=== PATIENT | female | born 1965 | race Caucasian/White ===

== ENCOUNTER 2017-12-20 13:27 | Emergency (ER) | payer MEDICAID ==
[~2017-12-20] VITALS: Ht 162.6 cm; Wt 73.9 kg
[~2017-12-20 13:27] MED LIST: ARIP1TAB5 PO; GEMF600T3 PO; HYDR-2551 PO; IBUP800T24 PO; METF-371 PO; OMEG120017 PO; OMEP20TA85 PO; PANT1INJ3 IV; POTATAB17 PO; SELE200T2 PO; TEMA15CA PO; TRAZ100T2 PO; VITA400C3 PO
[2017-12-20 14:18] LABS: Basophils # (auto) 0.1 uL; Eosinophils # (auto) 0.1 uL; Eosinophils % (auto) 1.9 % (0.0-7.0); Hematocrit 43.6 % (36.0-46.0); Hemoglobin 15.2 g/dL (12.2-16.2); Lymphocytes # (auto) 2.3 uL; Lymphocytes % (auto) 29.5 % (10.0-50.0); Mean Corpuscular Hemoglobin 31.8 pg (28.0-32.0); Mean Corpuscular Hgb Conc. 34.8 g/dL (32.0-36.0); Mean Corpuscular Volume 91.3 fL (80.0-100.0); Monocytes # (auto) 0.7 uL; Monocytes % (auto) 8.8 % (0.0-12.0); Neutrophils # (auto) 4.6 uL; Neutrophils % (auto) 58.8 % (37.0-80.0); Nucleated Red Blood Cells % 0.1 %; Platelet Count (auto) 219 10^3/uL (140-450); Red Blood Cells 4.77 10^6/uL (4.0-5.20); Red Cell Distribution Width 13.7 % (11.8-14.3); White Blood Cell 7.8 10^3/uL (4.4-10.8)
[2017-12-20 14:22] LABS: Urine Bacteria NONE SEEN /hpf (None Seen); Urine Blood Negative /uL (Negative); Urine Specific Gravity 1.005 (1.001-1.035); Urine WBC <1 /hpf (0 - 5)
[2017-12-20 14:34] LABS: Albumin 4.3 g/dL (3.4-5.0); BUN/Creatinine Ratio 7.7; Calcium 9.5 mg/dL (8.5-10.1); Potassium 3.8 mmol/L (3.5-5.1)
[2017-12-20 14:37] LABS: Bilirubin, Total 0.3 mg/dL (0.2-1.0); Total Protein 7.9 g/dL (6.4-8.2)
[2017-12-20] MEDS ORDERED: SODIUM CHLORIDE 0.9% 1,000 ML IV ONE (15:57)
[2017-12-20] MEDS ORDERED: KETOROLAC TROMETH 30 MG/ML 1ML VIAL IV ONE (16:00)
[2017-12-20] MEDS ORDERED: PROMETHAZINE HCL 25 MG/ML 1ML IV PRN (16:00)
[2017-12-20 18:05] VITALS: BP 127/74
== END 2017-12-20 19:33 | disposition home or self-care (01) ==
LOC: ER 13:27
DX: R10.9 Unspecified abdominal pain (principal); I25.10 Atherosclerotic heart disease of native coronary artery without angina pectoris; E11.9 Type 2 diabetes mellitus without complications; K21.9 Gastro-esophageal reflux disease without esophagitis; E78.5 Hyperlipidemia, unspecified; I10 Essential (primary) hypertension; F17.210 Nicotine dependence, cigarettes, uncomplicated; F12.10 Cannabis abuse, uncomplicated; Z79.899 Other long term (current) drug therapy; Z88.8 Allergy status to other drugs, medicaments and biological substances
CPT/HCPCS: 36415; 71046; 74176; 80053; 81001; 83690; 83735; 84443; 85025; 93005; 96374; 96375; 99285; J1885; J2550

== ENCOUNTER 2019-05-05 23:10 | Emergency (ER) | payer MEDICAID ==
[~2019-05-05] VITALS: Ht 162.6 cm; Wt 68.0 kg
[~2019-05-05 23:10] MED LIST changes: +AMLO5TAB15 PO; +ASPI-404 PO; +CLOP75TA41 PO; -GEMF600T3 PO; -HYDR-2551 PO; +IBUP200T76 PO; -IBUP800T24 PO; +IPRAAER6 IN; +METO-169 PO; -OMEG120017 PO; -OMEP20TA85 PO; -PANT1INJ3 IV; -POTATAB17 PO; -SELE200T2 PO; -TEMA15CA PO; -VITA400C3 PO
[2019-05-05 23:50] LABS: Basophils # (auto) 0.1 uL; Basophils % (auto) 1.3 % (0.0-2.0); Eosinophils # (auto) 0.2 uL; Eosinophils % (auto) 2.5 % (0.0-7.0); Hematocrit 43.5 % (36.0-46.0); Hemoglobin 15.2 g/dL (12.2-16.2); Lymphocytes # (auto) 3.4 uL; Lymphocytes % (auto) 42.5 % (10.0-50.0); Mean Corpuscular Hemoglobin 31.7 pg (28.0-32.0); Mean Corpuscular Hgb Conc. 34.9 g/dL (32.0-36.0); Mean Corpuscular Volume 90.7 fL (80.0-100.0); Monocytes # (auto) 0.7 uL; Monocytes % (auto) 9.2 % (0.0-12.0); Neutrophils # (auto) 3.6 uL; Neutrophils % (auto) 44.5 % (37.0-80.0); Nucleated Red Blood Cells % 0.1 %; Platelet Count (auto) 199 10^3/uL (140-450); Red Cell Distribution Width 13.2 % (11.8-14.3)
[2019-05-05 23:58] LABS: Alanine Aminotransferase 27 U/L (13-56); Albumin 4.1 g/dL (3.4-5.0); Anion Gap 7 (5-15); Aspartate Aminotransferase 21 U/L (15-37); BUN/Creatinine Ratio 7.6; Blood Urea Nitrogen 5 mg/dL (7-18); Carbon Dioxide 27 mmol/L (21-32); Chloride 102 mmol/L (98-107); GFR African American 120 mL/min; GFR Non-African American 99 mL/min; Glucose 117 mg/dL (74-106); Potassium 3.7 mmol/L (3.5-5.1); Sodium 136 mmol/L (136-145)
[2019-05-06 00:03] LABS: Alkaline Phosphatase 130 U/L (45-117); Bilirubin, Total 0.3 mg/dL (0.2-1.0); Total Protein 7.6 g/dL (6.4-8.2)
[2019-05-06 05:10] LABS: Urine Bacteria FEW /hpf (None Seen); Urine Blood Negative /uL (Negative); Urine Specific Gravity 1.005 (1.001-1.035); Urine WBC 2 /hpf (0 - 5)
[2019-05-06 06:26] VITALS: BP 152/81
== END 2019-05-06 07:14 | disposition home or self-care (01) ==
LOC: ER 23:16
DX: R07.89 Other chest pain (principal); I10 Essential (primary) hypertension; I25.2 Old myocardial infarction; E78.5 Hyperlipidemia, unspecified; E11.9 Type 2 diabetes mellitus without complications; F12.10 Cannabis abuse, uncomplicated; F17.210 Nicotine dependence, cigarettes, uncomplicated; Z98.61 Coronary angioplasty status; Z90.89 Acquired absence of other organs; Z88.8 Allergy status to other drugs, medicaments and biological substances
CPT/HCPCS: 36415; 71045; 80053; 81001; 83735; 84484; 85025

== ENCOUNTER → 2024-03-17 | Outpatient (CLI) | payer MEDICAID ==
[~2024-03-17] MED LIST changes: +ALBUTEROL SULF 2.5 MG/0.5ML(0.5%) NEB SOLN ONE; +AMLO1TAB22 PO; -AMLO5TAB15 PO; +ARIP10TA8 PO; -ARIP1TAB5 PO; -ASPI-404 PO; +ASPI-543 PO; -CLOP75TA41 PO; +CLOP75TA70 PO; -METO-169 PO; +METO-289 PO; +TRAZ-228 PO; -TRAZ100T2 PO
== END | disposition home or self-care (01) ==
LOC: RT 10:36
PROVIDERS: ATTEND Internal Medicine Pulmonary Disease
DX: J44.9 Chronic obstructive pulmonary disease, unspecified (principal); R06.09 Other forms of dyspnea
CPT/HCPCS: 94060; 94727; 94729

== ENCOUNTER 2024-06-26 08:41 | Emergency (ER) | payer MEDICAID ==
[~2024-06-26] VITALS: Ht 170.2 cm; Wt 67.6 kg
[~2024-06-26 08:41] MED LIST changes: -ALBUTEROL SULF 2.5 MG/0.5ML(0.5%) NEB SOLN ONE
[2024-06-26 09:10] VITALS: PULSE 90; RESP 18; O2SAT 95
--- NOTE | 2024-06-26 09:14 | ED.PDOC ---
History of Present Illness HPI Comments 59 Y F with PMHX of DM, ME, and HLD presents to the ED with chief complaint of mental health. Patient states that she has been having hallucinations since the passing of her SO on 04/22/24, with associated feelings of sadness. Patients relays that "she is fighting evil spirts" and that "the evil spirts are coming in and out of her". Patient denies any SI or HI, additionally denies the use of ETOH or drugs. Chief Complaint: Mental Health Time Seen by MD: 09:01 Primary Care Provider: NEERAJ Reviewed Notes: Medications, Allergies Allergies: Coded Allergies: Alirocumab (Verified Allergy, Unknown, 09/28/18) Atorvastatin (Verified Allergy, Unknown, 09/28/18) Reported [place] [facility] [place], [place]. Severity of allergy uknown. Clotrimazole (Verified Allergy, Unknown, 12/20/17) Gabapentin (Verified Allergy, Unknown, 09/28/18) Lisinopril (Verified Allergy, Unknown, 09/28/18) Reported by [facility] in [place], [place]. Severity of allergy unknown. Mouse Protein (Verified Allergy, Unknown, 09/28/18) Polymyxin B (Verified Allergy, Unknown, 12/20/17) Potassium (Verified Allergy, Unknown, 09/28/18) Rosuvastatin (Verified Allergy, Unknown, 09/28/18) Simvastatin (Verified Allergy, Unknown, 09/28/18) Temazepam (Verified Allergy, Unknown, 09/28/18) Home Meds Reported Medications Ibuprofen (Advil) 200 Mg Tab, 200 MG PO PRN, TAB 09/28/18 Ipratropium-Albuterol (COMBIVENT RESPIMAT) Respimat Aer, 1 PUFF IN BID, AER 09/28/18 Clopidogrel Bisulfate (CLOPIDOGREL) 75 Mg Tab, 75 MG PO DAILY for 30 Days, MG 09/28/18 Aspirin (Aspir-Low) 81 Mg Tab, 81 MG PO DAILY for 30 Days, MG 09/28/18 Amlodipine Besylate (Amlodipine Besylate) 5 Mg Tab, 5 MG PO DAILY for 30 Days, MG 09/28/18 Metoprolol Succinate (Metoprolol Succinate Er) 50 Mg Tab, 1 TAB PO DAILY, #30 TAB 5 Refills 09/28/18 Aripiprazole (Abilify) 10 Mg Tab, 10 MG PO HS, TAB 06/30/14 Trazodone Hcl (Trazodone Hcl) 100 Mg Tab, 2 TAB PO QPM, #30 TAB 1 Refill 06/30/14 Metformin Hydrochloride (Metformin Hcl) 850 Mg Tab, 1 TAB PO DAILY, #60 TAB 5 Refills 06/30/14 Information Source: Patient Mode of Arrival: Ambulatory Severity: Mild Timing: Months Duration: Since onset Past Medical History PAST MEDICAL HISTORY: DM, GERD, High Lipids, HTN, ME Surgical History: PTCA, Tonsillectomy RECORD RETRIEVAL SPECIALIST History: No Pertinent RECORD RETRIEVAL SPECIALIST History Family History Family History: Family hx of heart bijal Social History Smoker: Cigarettes, Less Than 1 Pack/Day Alcohol: Denies ETOH Use Drugs: Marijuana Lives In: Home Constitutional: denies: chills, diaphoresis, fatigue, fever, malaise, sweats, weakness, others EENTM: denies: blurred vision, double vision, ear bleeding, ear discharge, ear drainage, ear pain, ear ringing, eye pain, eye redness, hearing loss, mouth pain, mouth swelling, nasal discharge, nose bleeding, nose congestion, nose pain, photophobia, tearing, throat pain, throat swelling, voice changes, others Respiratory: denies: cough, hemoptysis, orthopnea, SOB at rest, shortness of breath, SOB with excertion, stridor, wheezing, others Cardiovascular: denies: chest pain, dizzy spells, diaphoresis, Dyspnea on exertion, edema, irregular heart beat, left arm pain, lightheadedness, palpit ations, PND, syncope, others Gastrointestinal: denies: abdomen distended, abdominal pain, blood streaked b owels, constipated, diarrhea, dysphagia, difficulty swallowing, hematemesis, melena, nausea, poor appetite, poor fluid intake, rectal bleeding, rectal pain, vomiting, others Genitourinary: denies: abnormal vagina bleeding, burning, dyspareunia, dysuria, flank pain, frequency, hematuria, incontinence, pain, , vagina discharge, urgency, others Neurological: denies: dizziness, fainting, headache, left sided numbness, left sided weakness, numbness, paresthesia, pre-existing deficit, right sided numbness, right sided weakness, seizure, speech problems, tingling, tremors, weakness, others Musculoskeletal: denies: back pain, gout, joint pain, joint swelling, muscle pain, muscle stiffness, neck pain, others Integumetry: denies: bruises, change in color, change in hair/nails, dryness, laceration, lesions, lumps, rash, wounds, others Allergic/Immunocompromised: denies: Difficulty Healing, Frequent Infections, Hives, Itching, others Hematologic/Lymphatic: denies: anemia, blood clots, easy bleeding, easy brui sing, swollen glands, others Endocrine: denies: excessive hunger, excessive sweating, excessive thirst, ex cessive urination, flushing, intolerance to cold, intolerance to heat, unexplained weight gain, unexplained weight loss, others Psychiatric: reports: others; denies: anxiety, bipolar disorder, depression, hopeless, panic disorder, schizophrenia, sleepless, suicidal All Other Systems: Reviewed and Negative Physical Exam General Appearance: No Apparent Distress, Normal HEENT: Normal ENT Inspection, Pharynx Normal, TMs Normal Neck: Full Range of Motion, Non-Tender, Normal, Normal Inspection Respiratory: Chest Non-Tender, Lungs Clear, No Accessory Muscle Use, No Respiratory Distress, Normal Breath Sounds Cardiovascular: No Edema, No JVD, No Murmur, No Gallop, Normal Peripheral Pulses, Regular Rate/Rhythm Breast Exam: Deferred Gastrointestinal: No Organomegaly, Non Tender, No Pulsatile Mass, Normal Bowel Sounds, Soft Genitalia: Deferred Pelvic: Deferred Rectal: Deferred Extremities: No calf tenderness, Normal capillary refill, Normal inspection, Normal range of motion, Non-tender, No pedal edema Musculoskeletal : Apperance: Normal Neurologic: Alert, master tax advisor II-XII nml as Tested, No Motor Deficits, Normal Affect, Normal Mood, No Sensory Deficits Cerebellar Function: Normal Reflexes: Normal Skin: Dry, Normal Color, Warm Lymphatic: No Adenopathy Was a procedure done? Was a procedure done?: No Differential Dx Considerations may include: Ashia, anxiety, grief reaction, major depression X-Ray, Labs, Meds, VS Vital Signs Date Time Temp Pulse Resp B/P (MAP) Pulse Ox O2 Delivery O2 Flow Rate FiO2 06/26/24 13:00 63 26 111/71 (84) 90 06/26/24 11:20 68 20 153/85 (107) 93 06/26/24 09:10 90 18 95 Room Air* 0 21 06/26/24 09:08 98.5 90 18 182/111 (134) 95 98.5 06/26/24 08:51 98.5 91 16 173/102 (125) 96 Lab Test 06/26/24 11:25 06/26/24 09:14 06/26/24 09:07 Range/Units Urine Color Yellow Yellow Urine Clarity Clear Clear Urine pH 6.5 5.0-9.0 Urine Specific [place] 1.013 1.001-1.035 Urine Protein Negative Negative Urine Ketones Negative Negative Urine Blood Negative Negative /uL Urine Nitrite Negative Negative Urine Bilirubin Negative Negative Urine Urobilinogen Normal Negative mg/dL Urine Leukocyte Esterase Negative Negative /uL Urine RBC None seen 0 - 4 /hpf Urine WBC 1 0 - 5 /hpf Urine Squamous Epithelial Cells Few <5 /hpf Urine Bacteria None seen None Seen /hpf Urine Mucus Few None Seen Urine Glucose Normal Normal mg/dL Urine Opiates Screen Neg NEGATIVE Urine Fentanyl Screen Neg NEGATIVE Urine Barbiturates Screen Neg NEGATIVE Urine Phencyclidine Screen Neg NEGATIVE Urine Amphetamines Screen Neg NEGATIVE Urine Benzodiazepines Screen Neg NEGATIVE Urine Cocaine Screen Neg NEGATIVE Urine Cannabinoids Screen Pos NEGATIVE White Blood Count 7.7 4.4-10.8 10^3/uL Red Blood Count 4.92 4.0-5.20 10^6/uL Hemoglobin 14.9 12.2-16.2 g/dL Hematocrit 44.4 36.0-46.0 % Mean Corpuscular Volume 90.2 80.0-100.0 fL Mean Corpuscular Hemoglobin 30.2 28.0-32.0 pg Mean Corpuscular Hemoglobin Concent 33.5 32.0-36.0 g/dL Red Cell Distribution Width 13.6 11.8-14.3 % Platelet Count 212 140-450 10^3/uL Mean Platelet Volume 9.3 6.9-10.8 fL Neutrophils (%) (Auto) 62.4 37.0-80.0 % Lymphocytes (%) (Auto) 24.9 10.0-50.0 % Monocytes (%) (Auto) 9.3 0.0-12.0 % Eosinophils (%) (Auto) 2.2 0.0-7.0 % Basophils (%) (Auto) 1.2 0.0-2.0 % Neutrophils # (Auto) 4.8 1.6-8.6 10 ^3/uL Lymphocytes # (Auto) 1.9 0.4-5.4 10 ^3/uL Monocytes # (Auto) 0.7 0-1.3 10 ^3/uL Eosinophils # (Auto) 0.2 0-0.8 10 ^3/uL Basophils # (Auto) 0.1 0-0.2 10 ^3/uL Nucleated Red Blood Cells 0.1 % Sodium Level 135 L 136-145 mmol/L Potassium Level 3.2 L 3.5-5.1 mmol/L Chloride Level 99 98-107 mmol/L Carbon Dioxide Level 28 20-31 mmol/L Anion Gap 8 5-15 Blood Urea Nitrogen 5 L 9-23 mg/dL Creatinine 0.75 0.550-1.02 mg/dL Glomerular Filtration Rate Calc 92 >90 mL/min BUN/Creatinine Ratio 6.7 L 10.0-20.0 Serum Glucose 164 H 74-106 mg/dL Calcium Level 9.9 8.7-10.4 mg/dL Salicylates Level < 3.0 -30 mg/dL Acetaminophen Level < 2.0 L 10.0-20.0 UG/ML Plasma/Serum Blood Alcohol < 3.0 <10 mg/dL POC Glucose 171 H 70-106 mg/dl Current Medications Medications (Trade) Dose Ordered Sig/Hira Route Start Time Stop Time Status Last Admin Olanzapine (ZyPREXA Tablet) 5 mg BID PO 06/26/24 11:15 06/26/24 12:12 Trazodone HCl (Desyrel) 200 mg HS PO 06/26/24 18:00 06/26/24 17:43 Time of 1ST Reevaluation: 09:31 Reevaluation 1ST: Unchanged Patient Education/Counseling: Diagnosis, Treatment Family Education/Counseling: No Family Present Departure 1 Departure Time of Disposition: 17:45 (Patient is medically clearedPatient was evaluated by psychiatry who recommends a 5150 hold for medically disability. We will transfer patient to a psychiatric facility.) Impression: Primary Impression: Auditory hallucination Additional Impression: Schizophrenia Qualified Codes: F20.1 - Disorganized schizophrenia [facility] Admit to: Med Surg Condition: Serious Critical Care Note Critical Care Time?: No Stability Stability form required: No Heart Score Heart Score: Heart Score Response (Comments) Value History N/A 0 EKG N/A 0 Age N/A 0 Risk Factors N/A 0 Troponin N/A 0 Total 0 I personally scribed for PATRICIA CASIANO MD ([email or web address]) on 06/26/24 at 09:14. Electronically submitted by Kimberly Cabrera ([email or web address]). PATRICIA CASIANO MD Jun 26, 2024 09:14
[2024-06-26 09:38] LABS: Basophils # (auto) 0.1 10 ^3/uL (0-0.2); Basophils % (auto) 1.2 % (0.0-2.0); Eosinophils # (auto) 0.2 10 ^3/uL (0-0.8); Eosinophils % (auto) 2.2 % (0.0-7.0); Hematocrit 44.4 % (36.0-46.0); Hemoglobin 14.9 g/dL (12.2-16.2); Lymphocytes # (auto) 1.9 10 ^3/uL (0.4-5.4); Lymphocytes % (auto) 24.9 % (10.0-50.0); Mean Corpuscular Hemoglobin 30.2 pg (28.0-32.0); Mean Corpuscular Hgb Conc. 33.5 g/dL (32.0-36.0); Mean Corpuscular Volume 90.2 fL (80.0-100.0); Monocytes # (auto) 0.7 10 ^3/uL (0-1.3); Monocytes % (auto) 9.3 % (0.0-12.0); Neutrophils # (auto) 4.8 10 ^3/uL (1.6-8.6); Neutrophils % (auto) 62.4 % (37.0-80.0); Nucleated Red Blood Cells % 0.1 %; Platelet Count (auto) 212 10^3/uL (140-450); Red Blood Cells 4.92 10^6/uL (4.0-5.20); Red Cell Distribution Width 13.6 % (11.8-14.3); White Blood Cell 7.7 10^3/uL (4.4-10.8)
[2024-06-26 09:45] LABS: Chloride 99 mmol/L (98-107)
[2024-06-26 09:46] LABS: Anion Gap 8 (5-15); Calcium 9.9 mg/dL (8.7-10.4); Carbon Dioxide 28 mmol/L (20-31)
[2024-06-26 09:58] LABS: Acetaminophen < 2.0 UG/ML (10.0-20.0); Blood Alcohol < 3.0 mg/dL (<10); Glucose 164 mg/dL (74-106); Potassium 3.2 mmol/L (3.5-5.1); Sodium 135 mmol/L (136-145)
[2024-06-26 10:07] LABS: BUN/Creatinine Ratio 6.7 (10.0-20.0)
[2024-06-26 10:18] LABS: Blood Urea Nitrogen 5 mg/dL (9-23); Salicylate < 3.0 mg/dL (-30)
--- NOTE | 2024-06-26 11:23 | DVHINCON2 ---
Date of service: Jun 26, [address] Richard Austin Reason for Consultation Medication management and disposition. History of Present Illness Chief complaint: "I am fighting with bad spirits". History of present illness: This is a 59 year female who was seen for evaluation via telepsychiatry. Patient reported that she has been experiencing visual hallucination stating "I see a light coming of my water bottle in my room". She denied any visual hallucination. She reported that she has been feeling depressed stating "has been very depressed". She reported having trouble sleeping, energy low, has decreased appetite. She denied feeling hopeless or worthless. She denied any suicidal or homicidal ideation. She reported feeling paranoid. Past psychiatric history: Patient reported one previous inpatient psychiatric hospitalization. Patient reported that she has been diagnosed schizophrenia. She denied any suicide attempts in the past. Past Medical History As per history and physical. Past Surgical History As per history and physical. Family History: Family history: Cardiovascular disease G8 SISTER SON Family history: Diabetes mellitus G8 SISTER Family History She denied any family history of any psychiatric illness. Social History Patient is single and has one son. Patient reported that she is on SSI. Patient reported that her boyfriend recently . Substance use: Patient reported occasional marijuana use. Allergies: Coded Allergies: Alirocumab (Verified Allergy, Unknown, 09/28/18) Atorvastatin (Verified Allergy, Unknown, 09/28/18) Reported by [facility] in [place], [place]. Severity of allergy uknown. Clotrimazole (Verified Allergy, Unknown, 12/20/17) Gabapentin (Verified Allergy, Unknown, 09/28/18) Lisinopril (Verified Allergy, Unknown, 09/28/18) Reported by [facility] in [place], [place]. Severity of allergy unknown. Mouse Protein (Verified Allergy, Unknown, 09/28/18) Polymyxin B (Verified Allergy, Unknown, 12/20/17) Potassium (Verified Allergy, Unknown, 09/28/18) Rosuvastatin (Verified Allergy, Unknown, 09/28/18) Simvastatin (Verified Allergy, Unknown, 09/28/18) Temazepam (Verified Allergy, Unknown, 09/28/18) Home Meds Reported Medications Ibuprofen (Advil) 200 Mg Tab, 200 MG PO PRN, TAB 09/28/18 Ipratropium-Albuterol (COMBIVENT RESPIMAT) Respimat Aer, 1 PUFF IN BID, AER 09/28/18 Clopidogrel Bisulfate (CLOPIDOGREL) 75 Mg Tab, 75 MG PO DAILY for 30 Days, MG 09/28/18 Aspirin (Aspir-Low) 81 Mg Tab, 81 MG PO DAILY for 30 Days, MG 09/28/18 Amlodipine Besylate (Amlodipine Besylate) 5 Mg Tab, 5 MG PO DAILY for 30 Days, MG 09/28/18 Metoprolol Succinate (Metoprolol Succinate Er) 50 Mg Tab, 1 TAB PO DAILY, #30 TAB 5 Refills 09/28/18 Aripiprazole (Abilify) 10 Mg Tab, 10 MG PO HS, TAB 06/30/14 Trazodone Hcl (Trazodone Hcl) 100 Mg Tab, 2 TAB PO QPM, #30 TAB 1 Refill 06/30/14 Metformin Hydrochloride (Metformin Hcl) 850 Mg Tab, 1 TAB PO DAILY, #60 TAB 5 Refills 06/30/14 Review of Systems Review of systems is negative except HPI. Vital Signs Vital Signs Date Time Temp Pulse Resp B/P (MAP) Pulse Ox O2 Delivery O2 Flow Rate FiO2 06/26/24 09:10 90 18 95 Room Air* 0 21 06/26/24 09:08 98.5 182/111 (134) 98.5 Physical Exam Mental status examination: This is a 59 year female who appears slightly older than her stated age. Her grooming is marginal. Her eye contact is good. Her speech is regular rate and rhythm. She describes her mood as "I am okay" and her affect is restricted. She denied any suicidal or homicidal ideation. She reported visual hallucination. She denied any auditory hallucination. Her thought processes disorganized. She is oriented to time, place and person. Her attention and concentration impaired. Her memory and language intact. Her judgment and insight is limited. Her impulse control is limited. Her fund of knowledge impaired. Labs/Diagnostic Data Labs Test 06/26/24 09:14 06/26/24 09:07 Range/Units White Blood Count 7.7 4.4-10.8 10^3/uL Red Blood Count 4.92 4.0-5.20 10^6/uL Hemoglobin 14.9 12.2-16.2 g/dL Hematocrit 44.4 36.0-46.0 % Mean Corpuscular Volume 90.2 80.0-100.0 fL Mean Corpuscular Hemoglobin 30.2 28.0-32.0 pg Mean Corpuscular Hemoglobin Concent 33.5 32.0-36.0 g/dL Red Cell Distribution Width 13.6 11.8-14.3 % Platelet Count 212 140-450 10^3/uL Mean Platelet Volume 9.3 6.9-10.8 fL Neutrophils (%) (Auto) 62.4 37.0-80.0 % Lymphocytes (%) (Auto) 24.9 10.0-50.0 % Monocytes (%) (Auto) 9.3 0.0-12.0 % Eosinophils (%) (Auto) 2.2 0.0-7.0 % Basophils (%) (Auto) 1.2 0.0-2.0 % Neutrophils # (Auto) 4.8 1.6-8.6 10 ^3/uL Lymphocytes # (Auto) 1.9 0.4-5.4 10 ^3/uL Monocytes # (Auto) 0.7 0-1.3 10 ^3/uL Eosinophils # (Auto) 0.2 0-0.8 10 ^3/uL Basophils # (Auto) 0.1 0-0.2 10 ^3/uL Nucleated Red Blood Cells 0.1 % Sodium Level 135 L 136-145 mmol/L Potassium Level 3.2 L 3.5-5.1 mmol/L Chloride Level 99 98-107 mmol/L Carbon Dioxide Level 28 20-31 mmol/L Anion Gap 8 5-15 Blood Urea Nitrogen 5 L 9-23 mg/dL Creatinine 0.75 0.550-1.02 mg/dL Glomerular Filtration Rate Calc 92 >90 mL/min BUN/Creatinine Ratio 6.7 L 10.0-20.0 Serum Glucose 164 H 74-106 mg/dL Calcium Level 9.9 8.7-10.4 mg/dL Salicylates Level < 3.0 -30 mg/dL Acetaminophen Level < 2.0 L 10.0-20.0 UG/ML Plasma/Serum Blood Alcohol < 3.0 <10 mg/dL POC Glucose 171 H 70-106 mg/dl Assessment Patient with a diagnosis schizophrenia unspecified who has been experienced some visual hallucination. Plan/Recommendation I will recommend 5150 hold for grave disability and transferred to inpatient sychiatric level of care. I will start her on Zyprexa 5 mg p.o. b.i.d.. Care was coordinated with the patient and her RN. Plan discussed with: Patient LUZ WELCH MD Jun 26, 2024 11:23
[2024-06-26 11:27] LABS: Urine Bacteria None Seen /hpf (None Seen)
[2024-06-26 11:33] LABS: Urine Blood Negative /uL (Negative); Urine Clarity Clear (Clear); Urine Color Yellow (Yellow); Urine Mucus FEW (None Seen); Urine Protein, UAD Negative (Negative); Urine Specific Gravity 1.013 (1.001-1.035); Urine Urobilinogen Normal (Negative); Urine WBC 1 /hpf (0 - 5); Urine pH 6.5 (5.0-9.0)
[2024-06-26] MEDS: OLANZapine 5 MG TAB PO SCH (12:12)
[2024-06-26 12:15] LABS: Amphetamine Screen, Urine Neg (NEGATIVE); Barbiturate Scree,Urine Neg (NEGATIVE); Benzodiazephine Screen, Urine Neg (NEGATIVE); Cocaine Screen, Urine Neg (NEGATIVE); Opiate Scree,Urine Neg (NEGATIVE); Phencyclidine Screen, Urine Neg (NEGATIVE)
[2024-06-26 12:16] LABS: Cannabinoid Screen, Urine Pos (NEGATIVE)
[2024-06-26] MEDS: traZODone HCL 50 MG TAB PO SCH (17:43)
[2024-06-26] MEDS: POTASSIUM EFFERVESENT TAB 25 MEQ PO ONE (17:58)
[2024-06-26] MEDS: cloNIDine HCL 0.1 MG TAB PO ONE (18:44)
[2024-06-26 21:12] VITALS: BP 156/96; PULSE 70; RESP 20; TEMP 97.9; O2SAT 95
[2024-06-27] MEDS ORDERED: amLODIPine BESYLATE 5 MG TAB PO SCH (10:00)
[2024-06-27] MEDS ORDERED: CLOPIDOGREL BISULFATE 75 MG TAB PO SCH (10:00)
[2024-06-27] MEDS ORDERED: metFORMIN HYDROCHLORIDE 850 MG TAB PO SCH (10:00)
[2024-06-27] MEDS ORDERED: METOPROLOL SUCCINATE XL 50 MG TAB PO SCH (10:00)
[2024-06-27] MEDS ORDERED: ASPirin-EC 81 mg tab PO SCH (10:00)
== END 2024-06-26 21:45 | disposition short-term general hospital (02) ==
LOC: ER 08:41
DX: F20.9 Schizophrenia, unspecified (principal); E11.9 Type 2 diabetes mellitus without complications; E78.5 Hyperlipidemia, unspecified; K21.9 Gastro-esophageal reflux disease without esophagitis; F17.210 Nicotine dependence, cigarettes, uncomplicated; I10 Essential (primary) hypertension; I25.2 Old myocardial infarction; Z79.02 Long term (current) use of antithrombotics/antiplatelets; Z79.82 Long term (current) use of aspirin; Z79.84 Long term (current) use of oral hypoglycemic drugs; Z79.899 Other long term (current) drug therapy; Z88.3 Allergy status to other anti-infective agents; Z88.8 Allergy status to other drugs, medicaments and biological substances; Z90.89 Acquired absence of other organs
CPT/HCPCS: 36415; 80048; 80307; 80320; 80329; 81001; 82962; 85025

== ENCOUNTER 2025-04-02 16:49 | Emergency (ER) | payer MEDICAID ==
[~2025-04-02] VITALS: Ht 170.2 cm; Wt 63.8 kg
[2025-04-02 17:01] VITALS: BP 174/101; PULSE 60; RESP 18; TEMP 98.9; O2SAT 100
--- NOTE | 2025-04-02 17:29 | ED.PDOC ---
History of Present Illness HPI Comments 60-year-old female is brought in by ambulance with chief complaint of abdominal pain, nausea, and diarrhea. Significant history of DM, GERD, HLD, HTN, [place], PTCA, and tobacco cigarettes and marijuana abuse. Patient endorses on sudden, on protocol, atraumatic onset of symptoms, this morning. No reported recent prior elements, sick contact, injuries, travel, substance use, spoke food intake, or further relevant events or medical history. Denies any vomiting, bloody stools, urinary symptoms, fever, chills, or further associated symptoms. Chief Complaint: Abdominal Pain Time Seen by MD: 17:00 Primary Care Provider: NEERAJ Reviewed Notes: Nurses Notes, Shuttler Car Notes, Medications, Allergies Allergies: Coded Allergies: Alirocumab (Verified Allergy, Unknown, 09/28/18) Aspirin (Verified Allergy, Unknown, 04/02/25) Atorvastatin (Verified Allergy, Unknown, 09/28/18) Reported by [facility] in [place], [place]. Severity of allergy uknown. Clotrimazole (Verified Allergy, Unknown, 12/20/17) Gabapentin (Verified Allergy, Unknown, 09/28/18) Lisinopril (Verified Allergy, Unknown, 09/28/18) Reported by [facility] in [place], [place]. Severity of allergy unknown. Mouse Protein (Verified Allergy, Unknown, 09/28/18) Polymyxin B (Verified Allergy, Unknown, 12/20/17) Potassium (Verified Allergy, Unknown, 09/28/18) Rosuvastatin (Verified Allergy, Unknown, 09/28/18) Simvastatin (Verified Allergy, Unknown, 09/28/18) Temazepam (Verified Allergy, Unknown, 09/28/18) Home Meds Reported Medications Ibuprofen (Advil) 200 Mg Tab, 200 MG PO PRN, TAB 09/28/18 Ipratropium-Albuterol (COMBIVENT RESPIMAT) Respimat Aer, 1 PUFF IN BID, AER 09/28/18 Clopidogrel Bisulfate (CLOPIDOGREL) 75 Mg Tab, 75 MG PO DAILY for 30 Days, MG 09/28/18 Aspirin (Aspir-Low) 81 Mg Tab, 81 MG PO DAILY for 30 Days, MG 09/28/18 Amlodipine Besylate (Amlodipine Besylate) 5 Mg Tab, 5 MG PO DAILY for 30 Days, MG 09/28/18 Metoprolol Succinate (Metoprolol Succinate Er) 50 Mg Tab, 1 TAB PO DAILY, #30 TAB 5 Refills 09/28/18 Aripiprazole (Abilify) 10 Mg Tab, 10 MG PO HS, TAB 06/30/14 Trazodone Hcl (Trazodone Hcl) 100 Mg Tab, 2 TAB PO QPM, #30 TAB 1 Refill 06/30/14 Metformin Hydrochloride (Metformin Hcl) 850 Mg Tab, 1 TAB PO DAILY, #60 TAB 5 Refills 06/30/14 Information Source: Patient, Emergency Med Personnel Mode of Arrival: EMS Severity: Moderate Timing: Hours Duration: Since onset Prehospital treatment: 12 Lead EKG, Accucheck, Knurling Machine Tender Past Medical History PAST MEDICAL HISTORY: DM, GERD, High Lipids, HTN, [place] Surgical History: PTCA, Tonsillectomy BLUEPRINTER History: No Pertinent BLUEPRINTER History Family History Family History: Family hx of heart bijal Social History Smoker: Cigarettes, Less Than 1 Pack/Day Alcohol: Denies ETOH Use Drugs: Marijuana Lives In: Home All Other Systems: Reviewed and Negative (Comprehensive review of systems are otherwise negative unless stated HPI) Physical Exam General Appearance: Moderate Distress HEENT: Normal ENT Inspection, Pharynx Normal, TMs Normal Neck: Full Range of Motion, Non-Tender, Normal, Normal Inspection Respiratory: Chest Non-Tender, Lungs Clear, No Accessory Muscle Use, No Respiratory Distress, Normal Breath Sounds Cardiovascular: No Edema, No JVD, No Murmur, No Gallop, Normal Peripheral Pulses, Regular Rate/Rhythm Breast Exam: Deferred Gastrointestinal: Distended Genitalia: Deferred Pelvic: Deferred Rectal: Deferred Extremities: No calf tenderness, Normal capillary refill, Normal inspection, No rmal range of motion, Non-tender, No pedal edema Musculoskeletal : Apperance: Normal Neurologic: Alert, first aid officer II-XII nml as Tested, No Motor Deficits, Normal Affect, Normal Mood, No Sensory Deficits Cerebellar Function: Normal Reflexes: Normal Skin: Dry, Normal Color, Warm Peripheral Pulses: 3+ Radial (R), 3+ Radial (L) Lymphatic: No Adenopathy Was a procedure done? Was a procedure done?: No Differential Dx Considerations may include: Gastritis, gastroenteritis, GERD, PUD, cholelithiasis, cholecystitis, viral syndrome, spoiled food, among others X-Ray, Labs, Meds, VS Vital Signs Date Time Temp Pulse Resp B/P (MAP) Pulse Ox O2 Delivery O2 Flow Rate FiO2 04/02/25 17:01 98.9 60 18 174/101 100 98.9 04/02/25 16:55 52 Patient alert. Blood pressure elevated. Abdomen is distended. Vitals stable. States that she has been having nausea. Did take laxatives causing diarrhea. Was given hydralazine. Establish intravenous access. Was given fluids. Was given Zofran. Was given Flagyl. Explained to the patient. Continue monitoring. Time of 1ST Reevaluation: 17:30 Reevaluation 1ST: Unchanged Patient Education/Counseling: Diagnosis, Treatment, Need For Follow Up Family Education/Counseling: No Family Present SEPSIS Sepsis Screen Date sepsis recognized/suspect: Apr 02, 2025 Time Sepsis recognized/suspect: 1649 Recent Procedure: No On Antibiotic Therapy: No Respiratory Rate >20: No Heart Rate >90: No Temp<36 C (96.8 F) or >38.3 C: No SBP <90 or MAP <65 mmHG: No New Acute Mental Status Change: No Is the patient on CPAP, BIPAP,: No Physician Orders Electrocardigram (04/02/25 17:03) Complete Blood Count (04/02/25 17:32) Comprehensive Metabolic Panel (04/02/25 17:32) Chest Portable (04/02/25 17:32) Urinalysis (04/02/25 17:32) 1 Liter Bolus Of 0.9% Ns (04/02/25 17:45) Ct Ab Pel Wo Con-No Oral Or Iv (04/02/25 17:32) Vital Signs Date Time Temp Pulse Resp B/P (MAP) Pulse Ox O2 Delivery O2 Flow Rate FiO2 04/02/25 17:01 98.9 60 18 174/101 100 98.9 04/02/25 16:55 52 Departure 1 Departure Time of Disposition: 17:34 Impression: Primary Impression: Non-specific colitis Additional Impression: Acute abdominal pain Disposition: ADMITTED INPATIENT Admit to: Med Surg Condition: Guarded Critical Care Note Critical Care Time?: No Stability Stability form required: No Heart Score Heart Score: Heart Score Response (Comments) Value History N/A 0 EKG N/A 0 Age N/A 0 Risk Factors N/A 0 Troponin N/A 0 Total 0 I personally scribed for TORY MCKENZIE MD ([email or web address]) on 04/02/25 at 17:29. Electronically submitted by Tay Rocha ([email or web address]). TORY MCKENZIE MD Apr 02, 2025 17:29
[2025-04-02] MEDS: SODIUM CHLORIDE 0.9% 1,000 ML IV ONE (17:45)
[2025-04-02 18:06] LABS: Hematocrit 43.6 % (36.0-46.0); Hemoglobin 15.2 g/dL (12.2-16.2); Mean Corpuscular Hemoglobin 30.4 pg (28.0-32.0); Mean Corpuscular Volume 87.1 fL (80.0-100.0); Nucleated Red Blood Cells % 0.0 %
[2025-04-02 18:23] LABS: Alanine Aminotransferase 15 U/L (7-40); Albumin 4.7 g/dL (3.2-4.8); Alkaline Phosphatase 115 U/L (46-116); Anion Gap 4 (5-15); Calcium 9.5 mg/dL (8.7-10.4); Carbon Dioxide 30 mmol/L (20-31); Chloride 101 mmol/L (98-107); Potassium 3.8 mmol/L (3.5-5.1); Total Protein 7.2 g/dL (5.7-8.2)
[2025-04-02 18:24] LABS: BUN/Creatinine Ratio 7.4 (10.0-20.0); Bilirubin, Total 0.5 mg/dL (0.2-1.0); Blood Urea Nitrogen < 5 mg/dL (9-23); Glucose 163 mg/dL (74-106); Sodium 135 mmol/L (136-145)
--- NOTE | 2025-04-02 18:29 | DVH ---
CHEST RADIOGRAPH Indication: sob Technique: Single frontal view of the chest was obtained Comparison: None FINDINGS: Lines and Tubes: None Lungs: No focal consolidation. Pleura: No effusion. No pneumothorax. Cardiomediastinal contours: Unremarkable Bones: No acute osseous abnormality. IMPRESSION: 1. No acute cardiopulmonary disease.
--- NOTE | 2025-04-02 18:38 | DVH ---
Exam: CT CT AB PEL WO CON-NO ORAL OR IV History: distended Comparison Study: CT ABD/PEL on DOS: 05/21/24 TECHNIQUE: Multidetector CT of the abdomen was performed from lung bases to pubic symphysis. Imaging was performed without IV contrast. Axial, coronal and sagittal multiplanar reformats were obtained fr om the axial data set by the technologist. Radiation Dose Information: CT Dose: CTDI volume is 6 mGy. Dose-length product is 288.06 mGy*cm FINDINGS: Evaluation of solid organs is limited due to lack of intravenous contrast use. Findings: Lung Bases: No acute or significant lung base finding. Normal heart size. No pleural or pericardial effusion. Liver: The liver is normal in size. No focal lesions. Gallbladder and Biliary Tree: Unremarkable Spleen: Unremarkable Pancreas: The pancreas is grossly normal in appearance. Adrenal Glands: Unremarkable Kidneys: Punctate nonobstructing calculus left kidney. No calculi or hydronephrosis on the right kidn ey. Bladder: Grossly unremarkable for degree of distention. Bowel: The stomach is grossly normal in appearance. Small bowel and colon are normal in caliber and d istribution. The appendix is not visualized; however, no secondary findings of acute appendicitis id entified. Ascites: Absent Lymphadenopathy: No mesenteric, retroperitoneal or periportal lymphadenopathy. Abdominal Wall and Mesentery: Unremarkable. Vasculature: Ectatic infrarenal abdominal aorta measuring 3 cm. Evaluation of abdominal and pelvic v essels is limited due to lack of intravenous contrast. Pelvic Organs: Unremarkable Musculoskeletal: No aggressive focal bony lesions, acute fractures or dislocation. Soft tissues: 2.1 by 1.9 cm soft tissue consolidation in the left ischial rectal fossa correlate for possible phlegmon or abscess. (series 2 image 84) IMPRESSION: 1. Punctate nonobstructing calculus left kidney 2. 2.1 x 1.9 cm soft tissue nodule left ischial rectal fossa correlate clinically for developing absc ess or phlegmon. ( This is noted n series 2 image 84). 3. Radiation optimization: All CT scans at this facility use at least one of these dose optimization techniques: automated exposure control mA and/or kV adjustment per patient size (includes targeted e xams where dose is matched to clinical indication) or iterative reconstruction.
--- NOTE | 2025-04-04 07:18 | ECG ---
[facility] Test Date: 2025-04-02 Test Time: 16:55:57 Pat Name: GARDENIA HARPER Department: Room: Gender: F Office Specialist: ANGELICA : 1965 Requested By: TORY MCKENZIE Order Number: [id number] Reading MD: Valdo Sanders Measurements Intervals [place] Rate: 52 P: 31 NC: 155 QRS: -6 QRSD: 98 T: 69 QT: 455 QTc: 424 Interpretive Statements Sinus rhythm Electronically Signed On 04-04-2025 14:26:07 PDT by Valdo Sanders Please click the below link to view image of tracing.
== END 2025-04-03 01:32 | disposition left against medical advice (07) ==
LOC: ER 16:49 → EDBD 16:49 → ER 04-03 01:32
DX: K52.9 Noninfective gastroenteritis and colitis, unspecified (principal); R10.9 Unspecified abdominal pain; E78.5 Hyperlipidemia, unspecified; E11.9 Type 2 diabetes mellitus without complications; K21.9 Gastro-esophageal reflux disease without esophagitis; I10 Essential (primary) hypertension; F12.90 Cannabis use, unspecified, uncomplicated; F17.210 Nicotine dependence, cigarettes, uncomplicated; Z79.899 Other long term (current) drug therapy; Z90.89 Acquired absence of other organs; Z88.6 Allergy status to analgesic agent; Z88.3 Allergy status to other anti-infective agents; Z79.82 Long term (current) use of aspirin; Z79.02 Long term (current) use of antithrombotics/antiplatelets; Z79.84 Long term (current) use of oral hypoglycemic drugs; Z88.8 Allergy status to other drugs, medicaments and biological substances
CPT/HCPCS: 36415; 71045; 74176; 80053; 85025; 93005; 96361; 96365; 99285; J3490; J7030

== ENCOUNTER 2025-04-27 08:47 | Inpatient (IN) | payer MEDICAID ==
[2025-04-22 11:22] LABS: Alanine Aminotransferase 15 U/L (7-40); Anion Gap 8 (5-15); Calcium 10.0 mg/dL (8.7-10.4); Carbon Dioxide 29 mmol/L (20-31); Potassium 4.1 mmol/L (3.5-5.1); Total Protein 8.2 g/dL (5.7-8.2)
[2025-04-22 11:23] LABS: Albumin 5.2 g/dL (3.2-4.8); Alkaline Phosphatase 138 U/L (46-116); BUN/Creatinine Ratio 6.5 (10.0-20.0); Bilirubin, Total 0.3 mg/dL (0.2-1.0); Blood Urea Nitrogen < 5 mg/dL (9-23); Chloride 98 mmol/L (98-107); Glucose 158 mg/dL (74-106); Sodium 135 mmol/L (136-145); Urine Protein, UAD Negative (Negative)
[2025-04-22 11:26] LABS: INR 1.04 (0.9-1.15); Partial Thromboplastin Time 32.2 SEC (24.5-34.5); Prothrombin Time 11.0 sec (9.3-11.8)
[2025-04-22 11:40] LABS: Hematocrit 45.8 % (36.0-46.0); Hemoglobin 15.9 g/dL (12.2-16.2); Mean Corpuscular Hemoglobin 29.9 pg (28.0-32.0); Mean Corpuscular Volume 86.3 fL (80.0-100.0); Nucleated Red Blood Cells % 0.1 %
[2025-04-27] VITALS (13 sets, daily range): BP systolic 104–143; BP diastolic 66–93; PULSE 54–88; RESP 12–20; TEMP 97.9–98.1; O2SAT 86–99
[~2025-04-27] VITALS: Ht 170.2 cm; Wt 67.7 kg
[~2025-04-27 08:47] MED LIST changes: +CHOL200064 PO; +EZET10TA22 PO; +FLUT1AER3 IN; -IBUP200T76 PO; +INOS650T3 PO; -IPRAAER6 IN; +LORA5SYP23 PO; +NIC21P TOP; +PANT40TA2 PO; +[UNRECOGNIZED DRUG - CODE] PO
[2025-04-27] MEDS: ceFAZolin 2 GM/D5W50ml 50 ML IV ONE (09:26)
[2025-04-27] MEDS: ONDANSETRON HCL 4 MG/2 ML VIAL IV ONE ×2 (10:15→13:59)
[2025-04-27] MEDS: ONDANSETRON HCL 4 MG/2 ML VIAL ONE (10:15)
[2025-04-27] MEDS ORDERED: fentaNYL CITRATE 100 MCG/2 ML VL ONE (10:49)
[2025-04-27] MEDS ORDERED: PROPOFOL 10 MG/ML 20 ML IV ONE (10:50)
[2025-04-27] MEDS ORDERED: HYDROmorphone HCL 2 MG/ML VL/or syr ONE (10:51)
[2025-04-27] MEDS: LIDOCAINE 1% HCL (LOCAL ANESTH.) INJ 20ML MDV ONE (11:10)
--- NOTE | 2025-04-27 11:25 | DVHOP2 ---
Operative Report - 2 Report Details Date: 04/27/25 Preop Diagnosis: 1. Right foot bunion 2. Right foot 2nd hammertoe 3. Right foot 3rd hammertoe 4. Right foot 4th hammertoe 5. Right foot pain Postop Diagnosis: Same as preop Surgeon: René Black MD Anesthesiologist: See anesthesia Anesthesia: General Implant: 6 2 K-wire Consent: The patient was informed of the risks and benefits of the procedure. These include but are not limited to complications of anesthesia, postoperative infection, incomplete relief of symptoms, recurrence of symptoms, damage to blood vessels, nerves and tendons, deep venous thrombosis, pulmonary embolism and possible need for repeat surgery in the future. Complications: None Estimated Blood Loss: Minimal Fluids: See anesthesia Findings: Consistent with diagnosis Indications for Surgery: Worsening right foot pain Name of Procedure Performed 1. Right foot MIS bunionectomy (07356) 2. Right foot 2nd hammer toe repair (11380) 3. Right foot 3rd hammer toe repair (20724) 4. Right foot 4th hammer toe repair (57477) Procedure Details Procedure Details: PRE-PROCEDURE INFORMATION: In the pre-op holding area, the extremity to be operated on was clearly marked and the patient verified correct laterality of the marking. The patient was transferred to the OR table and placed in a supine position. A timeout was performed in which identification of the correct patient, procedure, location, and materials was done. The right foot and leg were prepped and draped in normal sterile fashion. DESCRIPTION OF PROCEDURE: Attention was directed to the right 1st metatarsophalangeal joint where a stab incision was made at the neck of the 1st metatarsal. Care was taken to avoid damage the neurovascular and tendinous structures. Using MIS bur osteotomy was then made at the neck of the 1st metatarsal. The metatarsal head was then shifted into position aligning the sesamoid bones over the fragment. Using a 6 2 K-wire, the wire was then driven down the shaft of the 1st metatarsal to hold the head in place until the osteotomy has healed. Attention was directed to the right 2nd toe where hammertoe was located was lo cated. A stab incision was made medial to the right 2nd The incision was deepened through blunt and sharp dissection. Care was taken to avoid any neurovascular and tendinous structures. Using the [employer] MIS bur, an osteotomy was performed and correction of the rigid hammertoe was noted. After the bur was used the exostosis was no longer felt clinically. The incision was closed with a 4-0 nylon. Attention was directed to the right 3rd where hammertoe was located was located. A stab incision was made medial to the right 3rd The incision was deepened through blunt and sharp dissection. Care was taken to avoid any neurovascular and tendinous structures. Using the [employer] MIS bur, an osteotomy was performed and correction of the rigid hammertoe was noted. After the bur was used the exostosis was no longer felt clinically. The incision was closed with a 4-0 nylon. Attention was directed to the right 4th where hammertoe was located was located. A stab incision was made medial to the right 4th The incision was deepened through blunt and sharp dissection. Care was taken to avoid any neurovascular and tendinous structures. Using the [employer] MIS bur, an osteotomy was performed and correction of the rigid hammertoe was noted. After the bur was used the exostosis was no longer felt clinically. The incision was closed with a 4-0 nylon. All surgical wounds were irrigated copiously with saline and closed in layers with the aforementioned suture material. A dry sterile dressing was placed on the surgical extremity. The patient was placed in a postop shoe POSTOPERATIVE INFORMATION: The patient tolerated the above noted procedure and anesthesia well and was transferred to the PACU with vital signs stable, and vascular status intact with capillary refill intact to all digits. Postoperative instructions reviewed in detail with the patient with written instructions provided. Patient will return to clinic in approximately 10-14 days for first postoperative visit. Patient has the number of the clinic and was instructed to call prior to that time should any problems, questions, or concerns arise. Condition Good Disposition Home Visit Coding Podiatry Date of Service if different f: Apr 27, 2025 Billing Provider: RENÉ BLACK DPM Podiatry Common Visit Codes: PROCEDURE ONLY RENÉ BLACK DPM Apr 27, 2025 11:25
[2025-04-27] MEDS ORDERED: METOCLOPRAMIDE HCL 5MG/ml INJ 2ml VIAL IV PRN (11:30)
[2025-04-27] MEDS: HYDROmorphone HCL 2 MG/ML VL/or syr IV PRN (12:49)
[2025-04-27] MEDS ORDERED: NITROGLYCERIN 0.4 MG SL TAB SL PRN (13:15)
[2025-04-27] MEDS ORDERED: MORPHINE SULFATE 4 MG/ML SYR/VIAL IV PRN (13:45)
--- NOTE | 2025-04-27 14:29 | DVHHP2 ---
Review of Systems Allergies: Coded Allergies: Alirocumab (Verified Allergy, Unknown, 09/28/18) Aspirin (Verified Allergy, Unknown, 04/02/25) Atorvastatin (Verified Allergy, Unknown, 09/28/18) Reported by [facility] in [place], [place]. Severity of allergy uknown. Clotrimazole (Verified Allergy, Unknown, 12/20/17) Gabapentin (Verified Allergy, Unknown, 09/28/18) Lisinopril (Verified Allergy, Unknown, 09/28/18) Reported by [facility] in [place], [place]. Severity of allergy unknown. Mouse Protein (Verified Allergy, Unknown, 09/28/18) Polymyxin B (Verified Allergy, Unknown, 12/20/17) Potassium (Verified Allergy, Unknown, 09/28/18) Rosuvastatin (Verified Allergy, Unknown, 09/28/18) Simvastatin (Verified Allergy, Unknown, 09/28/18) Temazepam (Verified Allergy, Unknown, 09/28/18) Medications Current Medications Medications Dose Ordered Sig/Hira Route Start Time Stop Time Status Last Admin Dose Admin Nitroglycerin 0.4 mg Q5MINP PRN SL 04/27/25 13:15 Morphine Sulfate 2 mg Q30M PRN IV 04/27/25 13:45 Exam Vital Signs Vital Signs Date Time Temp Pulse Resp B/P (MAP) Pulse Ox O2 Delivery O2 Flow Rate FiO2 04/27/25 14:00 60 14 138/78 04/27/25 11:22 Mask 12.0 96 04/27/25 11:22 96 04/27/25 09:23 97.4 97.4 Labs/Xrays Labs Test 04/27/25 12:31 04/22/25 10:38 Range/Units POC Glucose 137 H 70-106 mg/dl White Blood Count 8.5 4.4-10.8 10^3/uL Red Blood Count 5.31 H 4.0-5.20 10^6/uL Hemoglobin 15.9 12.2-16.2 g/dL Hematocrit 45.8 36.0-46.0 % Mean Corpuscular Volume 86.3 80.0-100.0 fL Mean Corpuscular Hemoglobin 29.9 28.0-32.0 pg Mean Corpuscular Hemoglobin Concent 34.6 32.0-36.0 g/dL Red Cell Distribution Width 14.3 11.8-14.3 % Platelet Count 325 140-450 10^3/uL Mean Platelet Volume 8.5 6.9-10.8 fL Neutrophils (%) (Auto) 77.6 37.0-80.0 % Lymphocytes (%) (Auto) 13.4 10.0-50.0 % Monocytes (%) (Auto) 7.6 0.0-12.0 % Eosinophils (%) (Auto) 0.6 0.0-7.0 % Basophils (%) (Auto) 0.8 0.0-2.0 % Neutrophils # (Auto) 6.6 1.6-8.6 10 ^3/uL Lymphocytes # (Auto) 1.1 0.4-5.4 10 ^3/uL Monocytes # (Auto) 0.6 0-1.3 10 ^3/uL Eosinophils # (Auto) 0 0-0.8 10 ^3/uL Basophils # (Auto) 0.1 0-0.2 10 ^3/uL Nucleated Red Blood Cells 0.1 % Prothrombin Time 11.0 9.3-11.8 sec Prothrombin Time INR 1.04 0.9-1.15 Activated Partial Thromboplast Time 32.2 24.5-34.5 SEC Urine Color Light-yellow Yellow Urine Clarity Turbid H Clear Urine pH 7.0 5.0-9.0 Urine Specific [place] 1.010 1.001-1.035 Urine Protein Negative Negative Urine Ketones Negative Negative Urine Blood Negative Negative /uL Urine Nitrite Negative Negative Urine Bilirubin Negative Negative Urine Urobilinogen Normal Negative mg/dL Urine Leukocyte Esterase Negative Negative /uL Urine RBC <1 0 - 4 /hpf Urine Microscopic WBC 1 0-5 /HPF Urine Squamous Epithelial Cells Few <5 /hpf Urine Bacteria None seen None Seen /hpf Urine Glucose Normal Normal mg/dL Sodium Level 135 L 136-145 mmol/L Potassium Level 4.1 3.5-5.1 mmol/L Chloride Level 98 98-107 mmol/L Carbon Dioxide Level 29 20-31 mmol/L Anion Gap 8 5-15 Blood Urea Nitrogen < 5 L 9-23 mg/dL Creatinine 0.77 0.550-1.02 mg/dL Glomerular Filtration Rate Calc 88 >90 mL/min BUN/Creatinine Ratio 6.5 L 10.0-20.0 Serum Glucose 158 H 74-106 mg/dL Calcium Level 10.0 8.7-10.4 mg/dL Total Bilirubin 0.3 0.2-1.0 mg/dL Aspartate Amino Transferase (AST) 20 13-40 U/L Alanine Aminotransferase (ALT) 15 7-40 U/L Alkaline Phosphatase 138 H 46-116 U/L Total Protein 8.2 5.7-8.2 g/dL Albumin 5.2 H 3.2-4.8 g/dL SEPSIS Sepsis Screen Physician Orders Discharge (04/27/25 09:13) Discharge Home Once Stable (04/27/25 09:13) Stringed Instrument Assembler (04/27/25 11:29) Notify Anesth. For Changes: (04/27/25 11:29) Discharge To Room Per Criteria (04/27/25 11:29) * Hospitalist Consult (04/27/25 ) Admit (04/27/25 13:01) Oxygen By Nasal Cannula (04/27/25 13:01) Nitroglycerin Sublingual (Ntrostat Subli (04/27/25 13:15) Stat Ekg For Chest Pain (04/27/25 13:01) Notify Md Of Changes From Base (04/27/25 13:01) White Sugar Boiler For 24 Hours (04/27/25 13:01) Emergency Dysrhythmia Protocol (04/27/25 13:01) Rhythm Strips Once Every Shift (04/27/25 13:01) Consistent Carb(Ccho)Diabetes (04/27/25 Lunch) Morphine Sulfate Injection (04/27/25 13:45) Aspirin Tablet (04/28/25 10:00) Clopidogrel Bisulfate (Plavix) (04/28/25 10:00) Vital Signs Date Time Temp Pulse Resp B/P (MAP) Pulse Ox O2 Delivery O2 Flow Rate FiO2 04/27/25 14:00 60 14 138/78 04/27/25 12:49 68 18 131/77 04/27/25 11:22 Mask 12.0 96 04/27/25 11:22 63 12 96 Mask 12.0 04/27/25 09:23 97.4 77 17 145/87 (106) 94 97.4 Medications Medications Dose Ordered Sig/Hira Route Start Time Stop Time Status Last Admin Dose Admin Hydromorphone HCl 0.5 mg Q10M PRN IV 04/27/25 11:30 04/27/25 12:15 DC 04/27/25 14:00 0.5 MG Lidocaine HCl 20 ml STK-MED ONCE .ROUTE 04/27/25 10:45 04/27/25 10:41 DC 04/27/25 11:10 10 ML Ondansetron HCl 4 mg ONCE ONCE IV 04/27/25 10:15 04/27/25 10:19 DC 04/27/25 10:15 4 MG Ondansetron HCl 4 mg ONCE ONCE IV 04/27/25 13:44 04/27/25 13:48 DC 04/27/25 13:59 4 MG Assessment/Plan Assessment/Plan SEE DICTATED NOTE Plan discussed with: Patient My Orders Orders - FRANTZ RMAOS MD Procedure Category Date Status Time Admit ADMIT 04/27/25 Transmitted 13:01 Oxygen By Nasal RT 04/27/25 Transmitted Cannula 13:01 Nitroglycerin PHA 04/27/25 In Process Sublingual (Ntrostat 13:15 Stat Ekg For Chest XENA 04/27/25 In Process Pain 13:01 Notify Md Of Changes [facility] 04/27/25 In Process From Base 13:01 White Sugar Boiler For [facility] 04/27/25 In Process 24 Hours 13:01 Emergency Dysrhythmia [facility] 04/27/25 In Process Protocol 13:01 Rhythm Strips Once [facility] 04/27/25 In Process Every Shift 13:01 Morphine Sulfate [facility] 04/27/25 In Process Injection 13:45 Aspirin Tablet PHA 04/28/25 Verified 10:00 Clopidogrel Bisulfate PHA 04/28/25 Verified (Plavix) 10:00 Date of Service: Apr 27, 2025 Billing Provider: FRANTZ RAMOS MD Common Visit Codes: [id number] INP/OBS CARE (HIGH) Secondary Visit Codes: [id number] CHNG SMOKING >10MIN, [id number] CARE PLAN 30 MINUTES FRANTZ RAMOS MD Apr 27, 2025 14:29
[2025-04-27] MEDS ORDERED: ONDANSETRON HCL 4 MG/2 ML VIAL IV PRN (14:30)
[2025-04-27] MEDS ORDERED: DEXTROSE (50%) 50ML SYRG IV PRN (14:30)
[2025-04-27] MEDS ORDERED: ACETAMINOPHEN 325 MG TAB PO PRN (14:30)
--- NOTE | 2025-04-27 14:46 | DVHHP ---
ADMIT DATE: 04/27/2025 HISTORY OF PRESENT ILLNESS: The patient is a 60-year-old lady who has been admitted after she underwent surgery on the right foot and was noted to have increasing hypoxia. The patient complains of mild shortness of breath. No chest pain. No cough. No dizziness or syncope. No nausea or vomiting. REVIEW OF SYSTEMS: Review of rest of systems otherwise currently negative. No history of any pedal edema. PAST MEDICAL HISTORY: Significant for COPD, diabetes, hypertension, hyperlipidemia, and anxiety/depression. MEDICATIONS: She takes amlodipine, Abilify, Plavix, metformin, metoprolol, trazodone. ALLERGIES: ALLERGIES ARE SEVERAL AND LISTED IN THE RECORD. SOCIAL HISTORY: Smokes about 8-10 cigarettes a day. Lives alone. Denies alcohol intake. FAMILY HISTORY: Family history is negative. PHYSICAL EXAMINATION: GENERAL: The patient is awake, alert. VITAL SIGNS: Temperature of 97.4, pulse 60 per minute, blood pressure 145/87. SHEENT: Unremarkable. NECK: There is no JVD. LUNGS: Lungs are equal bilaterally. They are diminished with scattered rhonchi. CARDIOVASCULAR: S1 and S2 is regular without murmurs. ABDOMEN: Soft. There is no organomegaly. NEUROLOGIC: Neurologic exam is nonfocal. MUSCULOSKELETAL: The right foot is currently in the dressing. No pedal edema. ASSESSMENT AND PLAN: * Acute on chronic respiratory failure. The patient's oxygen will be monitored and chest x-ray will be obtained. * Likely COPD with exacerbation for which she will be placed on bronchodilators. * Tobacco abuse. The patient has been advised to quit. A nicotine patch will be placed. Diabetes mellitus. She will be placed on sliding scale insulin. * Hypertension. * Hyperlipidemia. * Anxiety/depression. * Status post surgery on the right foot for which she will be followed up by Dr. Gifford. ADVANCED CARE PLANNING: The patient is a full code -TIME SPENT: 17 minutes. MD DANY De Leon/VERONICA TID: [id number] RECEIPT: [id number] MTD
[2025-04-27] MEDS ORDERED: hydrALAZINE HCL 20 MG/ML VL IV PRN (15:15)
--- NOTE | 2025-04-27 16:21 | DVH ---
CHEST RADIOGRAPH Indication: COPD Technique: Single frontal view of the chest was obtained COMPARISON: XY CHEST PORTABLE on DOS: 04/02/25 FINDINGS: Lines and Tubes: None Lungs: Congestion Pleura: No effusion. No pneumothorax. Cardiomediastinal contours: Unremarkable Bones: Unremarkable IMPRESSION: Increased interstital prominence. This may represent pulmonary vascular congestion and/or viral pneum onia. Clinical correlation advised.
[2025-04-27] MEDS: HYDROcodone-ACET 5/325MG TAB PO PRN (16:27)
[2025-04-27] MEDS: InsuLIN REG 1unit/0.01ml Soln (100units/ml) SC SCH (17:00)
[2025-04-27] MEDS: ACCU-CHEK COMFORT CURVE STRIP VI SCH (17:26)
[2025-04-27] MEDS: IPRATROPIUM BROM 0.5 MG/2.5ML INH SOL NEB SCH (18:00)
[2025-04-27] MEDS: ALBUTEROL SULF 2.5 MG/0.5ML(0.5%) NEB SOLN NEB SCH (18:00)
[2025-04-28] VITALS (10 sets, daily range): BP systolic 104–126; BP diastolic 64–81; PULSE 60–90; RESP 16–18; TEMP 97.8–98; O2SAT 90–100
[2025-04-28] MEDS: KETOROLAC TROMETH 30 MG/ML 1ML VIAL IV ONE (01:04)
[2025-04-28] MEDS: PANTOPRAZOLE 40 MG TAB PO SCH (05:03)
[2025-04-28 06:05] LABS: Hematocrit 35.8 % (36.0-46.0); Hemoglobin 12.4 g/dL (12.2-16.2); Mean Corpuscular Hemoglobin 30.0 pg (28.0-32.0); Mean Corpuscular Volume 86.6 fL (80.0-100.0); Nucleated Red Blood Cells % 0.2 %
[2025-04-28 06:25] LABS: Alanine Aminotransferase 13 U/L (7-40); Albumin 3.9 g/dL (3.2-4.8); Alkaline Phosphatase 76 U/L (46-116); Anion Gap 4 (5-15); Bilirubin, Total 0.3 mg/dL (0.2-1.0); Calcium 8.8 mg/dL (8.7-10.4); Carbon Dioxide 31 mmol/L (20-31); Chloride 100 mmol/L (98-107); Glucose 99 mg/dL (74-106); Potassium 4.3 mmol/L (3.5-5.1); Total Protein 6.0 g/dL (5.7-8.2)
[2025-04-28 06:30] LABS: BUN/Creatinine Ratio 8.1 (10.0-20.0); Blood Urea Nitrogen < 5 mg/dL (9-23); Sodium 135 mmol/L (136-145)
[2025-04-28] MEDS: CLOPIDOGREL BISULFATE 75 MG TAB PO SCH (10:16)
[2025-04-28] MEDS: METOPROLOL SUCCINATE XL 50 MG TAB PO SCH (10:18)
--- NOTE | 2025-04-28 10:18 | DVHDS2 ---
Discharge Summary Date of Admission Apr 27, 2025 at 13:01 Date of Discharge: Apr 27, 2025 Labs/Diagnostic Data: Laboratory Results Test 04/28/25 05:58 04/28/25 05:32 04/22/25 10:38 POC Glucose 127 mg/dl (70-106) White Blood Count 5.9 10^3/uL (4.4-10.8) Red Blood Count 4.14 10^6/uL (4.0-5.20) Hemoglobin 12.4 g/dL (12.2-16.2) Hematocrit 35.8 % (36.0-46.0) Mean Corpuscular Volume 86.6 fL (80.0-100.0) Mean Corpuscular Hemoglobin 30.0 pg (28.0-32.0) Mean Corpuscular Hemoglobin Concent 34.6 g/dL (32.0-36.0) Red Cell Distribution Width 14.1 % (11.8-14.3) Platelet Count 195 10^3/uL (140-450) Mean Platelet Volume 8.5 fL (6.9-10.8) Neutrophils (%) (Auto) 65.1 % (37.0-80.0) Lymphocytes (%) (Auto) 20.1 % (10.0-50.0) Monocytes (%) (Auto) 12.3 % (0.0-12.0) Eosinophils (%) (Auto) 1.7 % (0.0-7.0) Basophils (%) (Auto) 0.8 % (0.0-2.0) Neutrophils # (Auto) 3.8 10 ^3/uL (1.6-8.6) Lymphocytes # (Auto) 1.2 10 ^3/uL (0.4-5.4) Monocytes # (Auto) 0.7 10 ^3/uL (0-1.3) Eosinophils # (Auto) 0.1 10 ^3/uL (0-0.8) Basophils # (Auto) 0 10 ^3/uL (0-0.2) Nucleated Red Blood Cells 0.2 % Sodium Level 135 mmol/L (136-145) Potassium Level 4.3 mmol/L (3.5-5.1) Chloride Level 100 mmol/L (98-107) Carbon Dioxide Level 31 mmol/L (20-31) Anion Gap 4 (5-15) Blood Urea Nitrogen < 5 mg/dL (9-23) Creatinine 0.62 mg/dL (0.550-1.02) Glomerular Filtration Rate Calc 102 mL/min (>90) BUN/Creatinine Ratio 8.1 (10.0-20.0) Serum Glucose 99 mg/dL (74-106) Hemoglobin A1c 6.1 % A1C (<5.7) Calcium Level 8.8 mg/dL (8.7-10.4) Total Bilirubin 0.3 mg/dL (0.2-1.0) Aspartate Amino Transferase (AST) 18 U/L (13-40) Alanine Aminotransferase (ALT) 13 U/L (7-40) Alkaline Phosphatase 76 U/L (46-116) Total Protein 6.0 g/dL (5.7-8.2) Albumin 3.9 g/dL (3.2-4.8) Prothrombin Time 11.0 sec (9.3-11.8) Prothrombin Time INR 1.04 (0.9-1.15) Activated Partial Thromboplast Time 32.2 SEC (24.5-34.5) Urine Color Light-yellow (Yellow) Urine Clarity Turbid (Clear) Urine pH 7.0 (5.0-9.0) Urine Specific [place] 1.010 (1.001-1.035) Urine Protein Negative (Negative) Urine Ketones Negative (Negative) Urine Blood Negative /uL (Negative) Urine Nitrite Negative (Negative) Urine Bilirubin Negative (Negative) Urine Urobilinogen Normal mg/dL (Negative) Urine Leukocyte Esterase Negative /uL (Negative) Urine RBC <1 /hpf (0 - 4) Urine Microscopic WBC 1 /HPF (0-5) Urine Squamous Epithelial Cells Few /hpf (<5) Urine Bacteria None seen /hpf (None Seen) Urine Glucose Normal mg/dL (Normal) Other Laboratory Tests 04/28/25 05:32 Brief Hx & Hospital Course: SEE DICTATED NOTE Condition at Discharge: Good Final Diagnosis/Problems List RIGHT FOOT SURGERY Discharge Disposition: Home Discharge Instruct/Medications Diet: Regular Activity: Light activity Activity comment: WBAT in post op shoe Follow Up/Referral: 2 weeks Medications: Percocet 5mg Doxycycline 100mg RESUME HOME MEDS PULSE OX ON ROOM AIR BEFORE DISCHARGE Scheduled Amlodipine Besylate (Amlodipine Besylate), 5 MG PO DAILY, (Reported) Aripiprazole (Abilify), 10 MG PO HS, (Reported) Aspirin (Aspir-Low), 81 MG PO DAILY, (Reported) Clopidogrel Bisulfate (Clopidogrel), 75 MG PO DAILY, (Reported) Ezetimibe (Zetia), 1 TAB PO DAILY, (Reported) Loratadine (Claritin), 5 ML PO DAILY, (Reported) Metformin Hydrochloride (Metformin Hcl), 1 TAB PO DAILY, (Reported) Metoprolol Succinate (Metoprolol Succinate Er), 1 TAB PO DAILY, (Reported) Nicotine (Nicoderm 21MG/24HR), 1 PATCH TOP DAILY, (Reported) Pantoprazole Sodium Sesquihydr (Protonix), 40 MG PO DAILY, (Reported) Trazodone Hcl (Trazodone Hcl), 2 TAB PO QPM, (Reported) Miscellaneous Medications Cholecalciferol (D3 2000), 2,000 UNIT PO, (Reported) Abdxxpbuyxk-Uwcdrdfvfuek-Wihov (Trelegy Ellipta 100-62.5-25 Mcg/INH), 1 AER IN, (Reported) Inositol (Inositol), 650 MG PO, (Reported) Varenicline Tartrate (Varenicline Tartrate), 0.5 MG PO, (Reported) Discharge Statement: "Patient was advised to return to the ER or call 911 if any headaches, dizziness, shortness of breath, chest pain, abdominal pain, bleeding, fevers, or worsening of medical condition. Patient was counseled about treatment plan, medications, possible side effects, patientverbalized understanding. All questions were answered to the best of my ability. This discharge took greater then 30 minutes in planning, reviewing documentation, counseling the patient, and discussing with other team members." ASSESSMENT ASSESSMENT Assessment RIGHT FOOT SURGERY Date of Service: Apr 28, 2025 Billing Provider: FRANTZ RAMOS MD Common Visit Codes: [id number]-UMV/OBS DISCH DAY >30min FRANTZ RAMOS MD Apr 28, 2025 10:18
[2025-04-28] MEDS: NICOTINE 14 MG/24HR TOPICAL PATCH TD SCH (10:19)
[2025-04-28] MEDS: FUROSEMIDE 20 MG/2 ML VIAL IV ONE (10:39)
--- NOTE | 2025-04-28 10:39 | DVHDS ---
DATE OF DISCHARGE: 04/28/2025 HISTORY OF PRESENT ILLNESS: The patient is a 60-year-old lady who is admitted after she underwent surgery on the right foot and was noted to be hypoxic. The patient has a history of COPD, diabetes, hypertension, hyperlipidemia, and depression. HOSPITAL COURSE: The patient had increased interstitial prominence. The patient's counts are within normal limits. The patient is currently doing well and pulse ox is 92% on room air. She will be discharged home to resume her home medications and follow up with her primary and solderer electronic. She has been strongly advised to quit tobacco abuse. FINAL DIAGNOSES: * Acute and chronic respiratory failure. * Likely COPD exacerbation. * Tobacco abuse. * Hypertension. * Hyperlipidemia. * Depression. * Status post right foot surgery. Time spent in discharge planning and review of plan with the patient and nursing was 38 minutes. MD DANY De Leon/LALO TID: [id number] RECEIPT: [id number]
== END 2025-04-28 14:10 | disposition home or self-care (01) | DRG 314 ==
LOC: SUR 08:47 → OVERFLOW 13:01 → TELE-CENTR 15:57
PROVIDERS: ADMIT Internal Medicine; ATTEND Internal Medicine
PROC: 0QBQ0ZZ Excision of Right Toe Phalanx, Open Approach (ICD-10-PCS; 2025-04-27)
PROC: 0QBQ0ZZ Excision of Right Toe Phalanx, Open Approach (ICD-10-PCS; 2025-04-27)
PROC: 5A09357 Assistance with Respiratory Ventilation, Less than 24 Consecutive Hours, Continuous Positive Airway Pressure (ICD-10-PCS; 2025-04-27)
PROC: 0QSN04Z Reposition Right Metatarsal with Internal Fixation Device, Open Approach (ICD-10-PCS; principal; 2025-04-27 10:54)
PROC: 0QBQ0ZZ Excision of Right Toe Phalanx, Open Approach (ICD-10-PCS; 2025-04-27 10:54)
DX: M20.41 Other hammer toe(s) (acquired), right foot (principal); J96.21 Acute and chronic respiratory failure with hypoxia; J44.1 Chronic obstructive pulmonary disease with (acute) exacerbation; E78.5 Hyperlipidemia, unspecified; F32.A Depression, unspecified; F41.9 Anxiety disorder, unspecified; I10 Essential (primary) hypertension; M21.611 Bunion of right foot; E11.9 Type 2 diabetes mellitus without complications; F17.210 Nicotine dependence, cigarettes, uncomplicated; M89.9 Disorder of bone, unspecified; Z88.6 Allergy status to analgesic agent; Z88.8 Allergy status to other drugs, medicaments and biological substances; Z79.899 Other long term (current) drug therapy
CPT/HCPCS: 36415; 71045; 80053; 81001; 82962; 83036; 85025; 85610; 85730; 94640; G0378; J1885; J2003; J2405; J2704

== ENCOUNTER 2025-07-23 09:55 | Emergency (ER) | payer MEDICAID ==
[~2025-07-23] VITALS: Ht 170.2 cm; Wt 57.8 kg
[2025-07-23 10:00] VITALS: BP 135/103; PULSE 115; RESP 18; TEMP 97.7; O2SAT 95
== END 2025-07-23 11:04 | disposition left against medical advice (07) ==
LOC: ER 09:55
DX: R51.9 Headache, unspecified (principal); Z79.899 Other long term (current) drug therapy

== ENCOUNTER 2025-07-23 11:28 | Emergency (ER) | payer MEDICAID ==
[~2025-07-23] VITALS: Ht 172.7 cm; Wt 60.0 kg
--- NOTE | 2025-07-23 12:31 | ED.PDOC ---
HPI (NEURO) HPI Comments 60 y.o female presents to the ED for a chief complaint of left sided head pain x 3 days.; Patient reports having back pain which now radiated to her head, states pain is mainly on the occipital portion and presents with a bump. She denies any head injuries, falls, nausea, vomiting, vision changes, or focal deficits. Patient has a hx of DM, HTN, HLD and MN. She admits to tobacco and marijuana use. Chief Complaint: Headache Time Seen by MD: 12:25 Primary Care Provider: NEERAJ Reviewed Notes: Nurses Notes, Medications, Allergies Information Source: Patient Mode of Arrival: EMS Severity: Moderate Headache Severity: Moderate Timing: Days (3) Duration: Since onset Headache Quality: Sharp Headache Location: Occipital Onset: At rest Circumstances: Spontaneous History of: DM, Glaucoma Associated Signs and Symptoms: Headache Past Medical History PAST MEDICAL HISTORY: DM, GERD, High Lipids, HTN, MN Surgical History: PTCA, Tonsillectomy DRILL PRESS TENDER History: No Pertinent DRILL PRESS TENDER History Family History Family History: Family hx of heart bijal Social History Smoker: Cigarettes, Less Than 1 Pack/Day Alcohol: Denies ETOH Use Drugs: Marijuana Lives In: Home Constitutional: denies: chills, diaphoresis, fatigue, fever, malaise, sweats, weakness, others EENTM: denies: blurred vision, double vision, ear bleeding, ear discharge, ear drainage, ear pain, ear ringing, eye pain, eye redness, hearing loss, mouth pain, mouth swelling, nasal discharge, nose bleeding, nose congestion, nose pain, photophobia, tearing, throat pain, throat swelling, voice changes, others Respiratory: denies: cough, hemoptysis, orthopnea, SOB at rest, shortness of breath, SOB with excertion, stridor, wheezing, others Cardiovascular: denies: chest pain, dizzy spells, diaphoresis, Dyspnea on exertion, edema, irregular heart beat, left arm pain, lightheadedness, palpitations, PND, syncope, others Gastrointestinal: denies: abdomen distended, abdominal pain, blood streaked bowels, constipated, diarrhea, dysphagia, difficulty swallowing, hematemesis, melena, nausea, poor appetite, poor fluid intake, rectal bleeding, rectal pain, vomiting, others Genitourinary: denies: abnormal vagina bleeding, burning, dyspareunia, dysuria, flank pain, frequency, hematuria, incontinence, pain, , vagina discharge, urgency, others Neurological: reports: headache; denies: dizziness, fainting, left sided numbness, left sided weakness, numbness, paresthesia, pre-existing deficit, right sided numbness, right sided weakness, seizure, speech problems, tingling, tremors, weakness, others Musculoskeletal: denies: back pain, gout, joint pain, joint swelling, muscle pain, muscle stiffness, neck pain, others Integumetry: denies: bruises, change in color, change in hair/nails, dryness, l aceration, lesions, lumps, rash, wounds, others Allergic/Immunocompromised: denies: Difficulty Healing, Frequent Infections, Hives, Itching, others Hematologic/Lymphatic: denies: anemia, blood clots, easy bleeding, easy bruising, swollen glands, others Endocrine: denies: excessive hunger, excessive sweating, excessive thirst, excessive urination, flushing, intolerance to cold, intolerance to heat, unexplained weight gain, unexplained weight loss, others Psychiatric: denies: anxiety, bipolar disorder, depression, hopeless, panic disorder, schizophrenia, sleepless, suicidal, others All Other Systems: Reviewed and Negative Physical Exam General Appearance: Moderate Distress HEENT: Normal ENT Inspection, Pharynx Normal, TMs Normal Neck: Full Range of Motion, Non-Tender, Normal, Normal Inspection Respiratory: Chest Non-Tender, Lungs Clear, No Accessory Muscle Use, No Respiratory Distress, Normal Breath Sounds Cardiovascular: No Edema, No JVD, No Murmur, No Gallop, Normal Peripheral Pulses, Regular Rate/Rhythm Breast Exam: Deferred Gastrointestinal: No Organomegaly, Non Tender, No Pulsatile Mass, Normal Bowel Sounds, Soft Genitalia: Deferred Pelvic: Deferred Rectal: Deferred Extremities: No calf tenderness, Normal capillary refill, Normal inspection, Normal range of motion, Non-tender, No pedal edema Musculoskeletal : Apperance: Normal Neurologic: Alert, coal getter II-XII nml as Tested, No Motor Deficits, Normal Affect, Normal Mood, No Sensory Deficits Cerebellar Function: NOT DONE Reflexes: NOT DONE Skin: Dry, Normal Color, Warm Peripheral Pulses: 3+ Radial (R), 3+ Radial (L) Lymphatic: No Adenopathy Was a procedure done? Was a procedure done?: No Differential Diagnosis (SZ) Seizure: Psychogenic Seizure, Closed Head Injury, CVA/TIA Headache: Cluster, Migraine, CVA, Subarachnoid Hemorrhage, Subdural Hemorrhage X-Ray, Labs, Meds, VS Vital Signs Date Time Temp Pulse Resp B/P (MAP) Pulse Ox O2 Delivery O2 Flow Rate FiO2 07/23/25 11:38 97.8 69 16 188/98 97 97.8 Patient alert. Came in because headache. Vitals stable. Answering questions. Blood pressure elevated. Symptoms be due to her blood pressure. Was given clonidine. CT of the head reviewed does not show any acute changes. No neurological deficits. Explained to the patient. Was told to follow up with her primary care physician. Was told to come back if there is any problem. Time of 1ST Reevaluation: 12:28 Reevaluation 1ST: Unchanged Patient Education/Counseling: Diagnosis, Treatment, Prognosis Family Education/Counseling: No Family Present Departure 1 Departure Time of Disposition: 13:04 Impression: Primary Impression: Hypertensive urgency Disposition: 01 HOME / SELF CARE / HOMELESS Condition: Good Discharged With: Self Critical Care Note Critical Care Time?: No Stability Stability form required: No I personally scribed for TORY MCKENZIE MD ([email or web address]) on 07/23/25 at 12:31. Electronically submitted by Amaris Murguia ([facility]). TORY MCKENZIE MD Jul 23, 2025 12:31
--- NOTE | 2025-07-23 13:48 | DVH ---
PROCEDURE: CT HEAD WITHOUT CONTRAST Study Date and Requested Time: 07/23/2025 01:14 PM Study history: COMPARISON: None Dose: CTDI: 50.99 mGy DLP: 903 mGycm TECHNIQUE: Multiplanar images obtained through the brain without intravenous contrast. FINDINGS: Moderate frontoparietal brain Atrophy. Mild chronic small vessel ischemic changes. No hemorrhages, masses, mass effect, midline shift, herniation or cytotoxic edema following a large vascular territory. No intra-axial or extra-axial fluid collections. No evidence of hydrocephalus. The basal cisterns are patent. The pituitary gland, sella and parasellar regions are unremarkable. The cerebellar tonsils are in normal position. The cerebellum is unremarkable. The orbits and globes are unremarkable. The paranasal sinuses are clear. Postsurgical changes of bilateral mastoids and middle ears with mucosal thickening of the right mastoid wall. Nonspecific 0.7 x 1.2 cm lytic lesion of the left parietal calvarium. Metastasis is within the differential. IMPRESSION: No evidence of acute intracranial abnormality.
[2025-07-23] MEDS: HYDROcodone-ACET 10/325MG TAB PO ONE (15:25)
[2025-07-23 16:19] VITALS: BP 123/8; PULSE 81; RESP 16; TEMP 97.6; O2SAT 96
== END 2025-07-23 16:36 | disposition home or self-care (01) ==
LOC: ER 11:28 → EDBD 11:28 → ER 16:36
DX: I16.0 Hypertensive urgency (principal); E11.9 Type 2 diabetes mellitus without complications; E78.5 Hyperlipidemia, unspecified; F17.210 Nicotine dependence, cigarettes, uncomplicated; Z90.89 Acquired absence of other organs; Z79.899 Other long term (current) drug therapy
CPT/HCPCS: 70450